=== PATIENT | female | born 1950 | race Caucasian/White ===

== ENCOUNTER → 2019-08-21 | Outpatient (CLI) | payer OTHER | END | disposition home or self-care (01) | LOC: M.ULTRA 09:59 | PROVIDERS: ATTEND Surgery | DX: N63.12 Unspecified lump in the right breast, upper inner quadrant (principal); Z79.899 Other long term (current) drug therapy ==

== ENCOUNTER → 2019-10-29 | Outpatient (CLI) | payer OTHER ==
[~2019-10-29] MED LIST: ALLEGRA ALLERG180 MG PO; APAP W/CODEINE1 TA2 PO; CYCLOBENZAPRINE5 MG PO; DOXYCYCLINE HY100 M3 PO; DULOXETINE HCL60 MG PO; FLUCONAZOLE200 MG PO; LANTUS SOL100 UNIT/1 SUBQ; LEVOTHYROXINE50 MCG PO; LISINOPRIL20 MG PO; NOVOLOG FL100 UNIT/M SUBQ; PROTONIX40 M2 PO
== END | disposition home or self-care (01) ==
LOC: M.ULTRA 13:00 → M.LAB 13:12
PROVIDERS: ATTEND Surgery
DX: C50.911 Malignant neoplasm of unspecified site of right female breast (principal); Z98.890 Other specified postprocedural states; Z79.899 Other long term (current) drug therapy; Z85.3 Personal history of malignant neoplasm of breast; Z88.8 Allergy status to other drugs, medicaments and biological substances; Z20.828 Contact with and (suspected) exposure to other viral communicable diseases

== ENCOUNTER → 2019-11-03 | Day surgery (SDC) | payer OTHER ==
--- NOTE | ~2019-11-03 | OP ---
[address] [address] OPERATIVE REPORT Name: IRMAROSA Room: [facility]#: [id number] Admission: 11/03/19 Attend Phys: Rafael Thomas DO Discharge: Date of : 54 Report #: [id number] THIS REPORT FOR: //name// cc: William Bill MD, Matthew W. MD ~ CC: Rafael Bill MD DATE OF SERVICE: 11/03/2019 REFERRING PHYSICIANS: Dr. William Bill, Dr. Khoa Valdez and Dr. Marco A Quinn. PREOPERATIVE DIAGNOSIS: Infiltrating ductal carcinoma of the right breast. POSTOPERATIVE DIAGNOSIS: Infiltrating ductal carcinoma of the right breast. PROCEDURE: Right breast lumpectomy after RFID seed localization and deep right axillary sentinel lymph node biopsy. SURGEON: Rafael Thomas DO BAND TACKER: Dr. Fidel Pham. SECOND ADMINISTRATIVE COORDINATOR: Student, Dr. Blanca Murguia, MS3. ANESTHESIA: General endotracheal. ESTIMATED BLOOD LOSS: Less than 30 mL. COMPLICATIONS: None. DESCRIPTION OF PROCEDURE: After obtaining proper consents and discussing risks and complications with the patient, she was taken to the operating room. Prior to that last week, she was taken to the Radiology Department where a RFID seed localization was placed where the patient had previous biopsy performed in the right breast. When she was taken to the operating room, she was administered general endotracheal anesthetic. We then injected 5 mL of Lymphazurin blue dye around the nipple and areola. She had also been to Nuclear Medicine Department for injection of radioactive material for sentinel lymph node biopsy. She was then prepped and draped in the usual sterile fashion. A timeout was performed. We confirmed the appropriate patient and procedure. We then used the seed localizer to identify the area where there RFID seed [place] [address] OPERATIVE REPORT Name: ROSA SOLIS Room: [facility].#: [id number] Admission: 11/03/19 Attend Phys: Rafael Thomas DO Discharge: Date of : 54 Report #: [id number] reviewed the patient's mammograms prior to this and it appeared that the clip from the biopsy was approximately 2 cm away from where the seed was localized and the seed was placed anterior to the clip from the biopsy. We then used the seed localizer to identify the location of the seed and made an incision in the upper outer quadrant of the right breast over top of where the seed was placed, carried down through the skin into the subcutaneous tissue using electrocautery for hemostasis. We then used the seed localizer to identify the location of the seed again once we were within the breast tissue. Once we identified the seed, I dissected around it, so we have an approximately 2 cm in all directions around the clip which had been previously placed and we were able to use the measurements of the seed localizer to ensure this. Once the entire specimen was dissected free, I then used the vector marking system to nimesh the specimen in 6 dimensions. This was then sent off for evaluation by the radiologist to confirm that the seed and clip were within the specimen. While we awaited that we began checking the right axilla and the patient was quite obese and had numerous folds in her axilla, there was very little uptake of the radioactive material within the right axilla, but I did make an incision over top of the area of most uptake and then dissected down into the subcutaneous tissue until I encountered the axillary fat pad. We then again used the Neoprobe to identify the area of most uptake. This was again quite difficult and took approximately one hour to identify an area with some uptake and I did see some blue dye going into that area as well. I was finally able to identify an area even though we could only get a reading of approximately 40 on the Neoprobe, this was the only area where we had uptake and I could identify lymph nodes which also appeared somewhat blue. This area was completely excised using blunt and sharp dissection with Metzenbaum scissors as well as clipping and using electrocautery. Once this area was completely dissected free, it was passed off as specimen and labeled as the right axillary sentinel lymph node. I checked on the back table and we again obtained a reading of approximately 40, which was quite low, but the highest reading we could find. We also checked back in the axilla found no more uptake. I also checked the supraclavicular area in the inframammary area to see if there was any further uptake and I did not identify any. We then closed both wounds using 3-0 Vicryl suture for the deeper subcutaneous tissue and 4-0 Monocryl and Dermabond were used to close the skin. We did this after assuring hemostasis within both wounds. Sponge, needle and instrument counts were all correct at the end of the procedure. The patient tolerated the procedure well and was awakened in the operating room and transported to recovery room in stable condition. By: [id number] [id number] Thomas DO /nt
[2019-11-03 09:57] LABS: HEMATOCRIT 39.7 % (37.0-47.0); HEMOGLOBIN 13.3 gm/dL (12.0-15.0); MCH 29.2 pg (26.0-34.0); MCHC 33.4 g/dL (28.0-37.0); MCV 87.3 fL (80.0-100.0); RBC 4.55 mil/uL (4.20-5.00); RDW-CV 14.7 % (10.5-14.5); WBC 7.5 thou/uL (4.0-11.0)
[2019-11-03 10:00] LABS: CALCIUM 9.1 mg/dL (8.5-10.1); CREATININE 1.1 mg/dL (0.6-1.3); POTASSIUM 4.7 mmol/L (3.5-5.1)
--- NOTE | 2019-11-03 15:28 | EKG ---
[place] [address] ELECTROCARDIOGRAM REPORT Name: ROSA SOLIS Room: [facility]#: [id number] Admission: 11/03/19 Attend Phys: Rafael Thomas DO Discharge: Date of : 54 Date of Service: 11/03/19926 Report #: [id number] THIS REPORT FOR: //name// [facility] Test Date: 2019-11-03 Test Time: 09:27:25 Pat Name: ROSA SOLIS Department: Room: Gender: [employer]: : 1950 Requested By: Rafael Thomas Order Number: [id number] Alberto MD: Mumtaz Monahan Measurements Intervals [place] Rate: 85 P: 32 MT: 165 QRS: -24 QRSD: 100 T: 28 QT: 355 QTc: 422 Interpretive Statements Sinus rhythm Delayed R wave progression no previous ECG available for comparison Electronically Signed On 11-03-2019 15:28:36 CDT by Mumtaz Monahan [email or web address] <ELECTRONICALLY SIGNED> By: Mumtaz Monahan MD, [facility] 11/03/19 1528 6 6 Mumtaz Monahan MD, FACC /EPI
--- NOTE | 2019-11-09 15:07 | PATH ---
[address] [address] PATHOLOGY RPT PROCEDURE Name: ROSA SOLIS Room: [facility]#: [id number] Admission: 11/03/19 Date of : 54 Discharge: Report #: [id number] Path Case #: [id number] [facility] Accession Number: [id number] . 01 Material submitted: . PART A: breast - RIGHT BREAST LUMPECTOMY. Modifiers: right PART B: lymph node - RIGHT AXILLARY SENTINEL LYMPH NODE. Modifiers: right, axillary tail . 01 Clinical history: . INFILTRATING DUCTAL ADENOCARCINOMA . 02 Diagnosis: A. RIGHT BREAST LUMPECTOMY: - INFILTRATING DUCTAL ADENOCARCINOMA, LOW GRADE, SPANNING 7 MM, ADJACENT AND ANTERIOR TO PRIOR BIOPSY SITE (WITH METALLIC CLIP AND CLEAR PLASTIC AND COPPER MARKERS PRESENT), WITH ALL SURGICAL MARGINS FREE OF INVOLVEMENT AND CLOSEST (ANTERIOR) LOCATED 2 MM AWAY. - DUCTAL CARCINOMA IN SITU (DCIS), NUCLEAR GRADE II, SPANNING LESS THAN 1 MM, ADJACENT TO INVASIVE TUMOR, WITH ALL SURGICAL MARGINS FREE OF INVOLVEMENT AND CLOSEST (ANTERIOR) LOCATED 7 MM AWAY. - SEE COMMENT. . B. Right axillary sentinel lymph node: - One benign lymph node with calcifications (0/1). See comment. . . SURGICAL PATHOLOGY CANCER CASE SUMMARY Protocol posting date: March 2019 . INVASIVE CARCINOMA OF THE BREAST: Resection Procedure ___ Excision (less than total mastectomy) Specimen Laterality ___ Right + Tumor Site + ___ Clock position: 1 o'clock + ___ Distance from nipple: 12 cm (see comment) Tumor Size ___ Greatest dimension of largest invasive focus >1 mm: 7 mm Histologic Type ___ Invasive carcinoma of no special type (ductal) Histologic Grade ([place] Histologic Score) Glandular (Acinar)/Tubular Differentiation ___ Score 2 (10% to 75% of tumor area forming glandular/tubular structures) Nuclear Pleomorphism ___ Score 2 (cells larger than normal with open vesicular nuclei, visible nucleoli, and moderate variability in both size and shape) [place] [address] PATHOLOGY RPT PROCEDURE Name: ROSA SOLIS Room: [facility]#: [id number] Admission: 11/03/19 Date of : 54 Discharge: Report #: [id number] Path Case #: [id number] Mitotic Rate ___ Score 1 Overall Grade ___ Grade 1 (scores of 3, 4, or 5) + Tumor Focality + ___ Single focus of invasive carcinoma Ductal Carcinoma In Situ (DCIS) ___ Present + ___ Negative for extensive intraductal component (EIC) + Size of DCIS + Estimated size of DCIS is: Less than 1 mm + Number of blocks with DCIS: 2 + Number of blocks examined: 18 + Architectural Pattern + ___ Cribriform + Nuclear Grade + ___ Grade II (intermediate) + Necrosis + ___ Present, focal (small foci or single cell necrosis) + Lobular Carcinoma In Situ (LCIS) + ___ Not identified Tumor Extension Skin ___ Skin is not present Skeletal Muscle ___ No skeletal muscle is present Margins Invasive Carcinoma Margins ___ Uninvolved by invasive carcinoma Distance from closest margin: 2 mm + Closest margin: Anterior DCIS Margins ___ Uninvolved by DCIS Distance from closest margin: 7 mm Regional Lymph Nodes ___ Uninvolved by tumor cells Total Number of Lymph Nodes Examined: 1 Number of Rillito Nodes Examined: 1 Treatment Effect in the Breast ___ No known presurgical therapy + Lymphovascular Invasion + ___ Not identified + Dermal Lymphovascular Invasion + ___ No skin present . PATHOLOGIC STAGE CLASSIFICATION (pTNM, AJCC 8TH EDITION) Primary Tumor (pT) ___ pT1b: Tumor >5 mm but < or equal to 10 mm in greatest dimension [place] [address] PATHOLOGY RPT PROCEDURE Name: ROSA SOLIS Room: [facility]#: [id number] Admission: 11/03/19 Date of : 54 Discharge: Report #: [id number] Path Case #: [id number] ___ (sn): Rillito node evaluated Regional Lymph Nodes (pN) ___ pN0: No regional lymph node metastasis identified + Additional Pathologic Findings + Small ductal papilloma + Ancillary Studies + ___ Breast Biomarker Testing Performed on Previous Biopsy + Testing Performed on A1 + Estrogen Receptor (ER) + ___ Positive 95% + Progesterone Receptor (PgR) + ___ Positive 95% + HER2 (by immunohistochemistry) + ___ Negative (Score 1+) + ___ Ki-67 percentage of positive nuclei: 10% + Microcalcifications + ___ Present in non-neoplastic tissue (MARJAN/db; 11/06/2019) [facility] 11/06/2019 1718 Local . 02 Comment: Properly controlled keratin AE1/AE3 immunohistochemical stain performed on B1 and B3 and keratin LATA performed on B2 and B4 are all negative for metastatic tumor cells. (MARJAN/db; 11/06/2019) . 02 Electronically signed: . Cristino Vance MD, Pathologist NPI- [id number] . 01 Gross description: . A. The specimen is received in formalin, labeled "Rosa Solis, right breast lobectomy". Received is a 15 g lumpectomy specimen measuring 4.47 from medial to lateral, 3.3 cm from anterior to posterior, and 2.1 cm from superior to inferior. The specimen is received inked as follows: Superior-red, inferior-blue, lateral-orange, medial-yellow, anterior-green, posterior-black. The specimen is sectioned from medial to lateral aspects into 11 slices revealing a previous biopsy site, with the metallic clip present, measuring 1.0 x 0.5 x 0.3 cm, which is located in slices 3 through 6. This site is 1.0 cm from the lateral margin, 1.7 cm from the medial margin, 0.8 cm from the superior margin, 0.6 cm from the inferior margin, 0.5 cm from the anterior margin, and 1.7 cm from the posterior margin. Anterior to the previous biopsy site, there is a focus of white fibrous tissue measuring 0.6 x 0.6 x 0.6 cm, which grossly abuts the anterior margin. At the most medial aspects of the previous biopsy site, there is a clear plastic and copper marker present. The specimen is submitted entirely from lateral to medial aspects in cassettes A1 through 18, with the slices in cassettes A3 through A16 [place] [address] PATHOLOGY RPT PROCEDURE Name: ROSA SOLIS Room: [facility]#: [id number] Admission: 11/03/19 Date of : 54 Discharge: Report #: [id number] Path Case #: [id number] anterior and posterior aspects. The cold ischemic time and time in formalin are not provided. The time out of formalin is 11:40 p.m. on 11/04/2019. . B. The specimen is received in formalin, labeled "Dillon Gardner axillary sentinel lymph node". Received is a segment of yellow-jackson lobulated tissue measuring 4.7 x 3.0 x 2.0 cm in greatest dimensions. Dissection of the specimen reveals a single lymph node measuring 2.7 cm in maximum dimensions. The lymph node is bisected and entirely submitted in cassettes B1 through B4, with each segment additionally bisected. (CAA; 11/04/2019) QAC/QAC 11/04/2019 1604 Local . 02 Pathologist provided ICD-10: C50.911, D05.11 . 02 CPT . 109705, 795794, D39281 Specimen Comment: A courtesy copy of this report has been sent to [phone], [phone] Specimen Comment: 1972, , Specimen Comment: Report sent to DR THIBODEAUX,DR ROSARIO,DR WHEELER / DR JI Specimen Comment: DR HICKS Performed at: [address], [place], [place] [id number] MD Den Thakur MD Phone: [phone] [facility]formed at: [facility] [address], [place], [place] [id number] MD Cristino Vance MD Phone: [phone]
== END | disposition home or self-care (01) ==
LOC: M.SUR
PROVIDERS: ATTEND Surgery
DX: C50.911 Malignant neoplasm of unspecified site of right female breast (principal); R59.0 Localized enlarged lymph nodes; E11.9 Type 2 diabetes mellitus without complications; M19.90 Unspecified osteoarthritis, unspecified site; G47.30 Sleep apnea, unspecified; Z98.890 Other specified postprocedural states; Z79.4 Long term (current) use of insulin; Z68.43 Body mass index [BMI] 50.0-59.9, adult; Z79.899 Other long term (current) drug therapy; Z88.8 Allergy status to other drugs, medicaments and biological substances

== ENCOUNTER 2019-12-18 21:23 | Inpatient (IN) | payer OTHER ==
[~2019-12-18] VITALS: Ht 170.2 cm; Wt 167.8 kg
[2019-12-18 21:24] VITALS: BP 134/74
[2019-12-19 09:02] LABS: HEMATOCRIT 39.3 % (37.0-47.0); HEMOGLOBIN 12.9 gm/dL (12.0-15.0); MCH 28.8 pg (26.0-34.0); MCHC 32.9 g/dL (28.0-37.0); MCV 87.6 fL (80.0-100.0); MPV 10.3 fl. (7.2-11.1); RBC 4.49 mil/uL (4.20-5.00); RDW-CV 14.9 % (10.5-14.5); WBC 6.2 thou/uL (4.0-11.0)
[2019-12-19 09:25] LABS: ALBUMIN 2.7 g/dL (3.4-5.0); CALCIUM 8.9 mg/dL (8.5-10.1); CREATININE 1.1 mg/dL (0.6-1.3); POTASSIUM 5.3 mmol/L (3.5-5.1); TOTAL BILIRUBIN 0.4 mg/dL (<0.1-1.0); TOTAL PROTEIN 7.7 g/dL (6.4-8.2)
[2019-12-19 10:24] VITALS: BP 150/72
[2019-12-19 12:36] VITALS: BP 135/68
[2019-12-19 16:35] VITALS: BP 123/62; BP 129/58
[2019-12-19 19:45] VITALS: BP 107/62
[2019-12-20] VITALS: BP 128/68
[2019-12-20 07:30] VITALS: BP 112/52
[2019-12-20 13:29] VITALS: BP 133/72
[2019-12-20 19:30] VITALS: BP 116/75
[2019-12-20 19:31] VITALS: BP 114/70
[2019-12-21 08:00] VITALS: BP 156/84
[2019-12-21] MEDS ORDERED: PREDNISONE 10 M10 MG PO (11:17)
[2019-12-21 11:57] VITALS: BP 156/84
[2019-12-21 12:31] VITALS: BP 156/84
== END 2019-12-21 14:05 | disposition home health service (06) | DRG 558 ==
LOC: M.ERS 21:23 → M.2W 12-19 03:30 → M.TBA-ER 12-19 03:30 → M.2W 12-19 12:16
PROVIDERS: Internal Medicine; ADMIT Internal Medicine; ATTEND Internal Medicine
DX: M70.62 Trochanteric bursitis, left hip (principal); Z68.43 Body mass index [BMI] 50.0-59.9, adult; M54.32 Sciatica, left side; E66.01 Morbid (severe) obesity due to excess calories; C50.911 Malignant neoplasm of unspecified site of right female breast; E11.9 Type 2 diabetes mellitus without complications; M19.90 Unspecified osteoarthritis, unspecified site; E88.09 Other disorders of plasma-protein metabolism, not elsewhere classified; I10 Essential (primary) hypertension; G47.30 Sleep apnea, unspecified; Z20.828 Contact with and (suspected) exposure to other viral communicable diseases; Z90.49 Acquired absence of other specified parts of digestive tract; Z79.4 Long term (current) use of insulin; Z79.899 Other long term (current) drug therapy; Z88.8 Allergy status to other drugs, medicaments and biological substances; Z92.3 Personal history of irradiation